=== PATIENT | female | born 1990 | race Hispanic/Latino ===

== ENCOUNTER 2017-05-30 01:07 | Emergency (ER) | payer BC ==
[2017-05-30 01:37] LABS: Bilirubin Negative (Negative); Blood, Urine Negative (Negative); Clarity CLEAR (Clear); Glucose, Urine (Dipstick) Negative (Negative); Leukocyte Moderate (Negative); Nitrite Negative (Negative); Protein, Urine (Dipstick) Trace mg/dL (Neg-Trace); Specific Gravity, Urine 1.025 (1.002-1.036)
[2017-05-30 01:39] LABS: Bacteria/HPF Rare-Few HPF (None Seen); Pathc Cast-AUWi Flag 0.13 (0-2.49); WBC/HPF 21-50 HPF (0-3)
[2017-05-30 01:48] LABS: Hyaline Casts/LPF NONE SEEN LPF (0-3 Hyaline)
== END 2017-05-30 02:56 | disposition home or self-care (01) ==
LOC: ERS 01:07
DX: N39.0 Urinary tract infection, site not specified (principal); F41.9 Anxiety disorder, unspecified; Z79.84 Long term (current) use of oral hypoglycemic drugs; Z79.899 Other long term (current) drug therapy
CPT/HCPCS: 81003; 81015; 87086; 99284

== ENCOUNTER 2017-08-04 23:15 | Emergency (ER) | payer BC ==
[2017-08-04 23:57] LABS: #Eosinphils 0.2 thou/uL (0.0-0.7); #Lymphocytes 3.7 thou/uL (1.20-3.40); #Monocytes 0.7 thou/uL (0.11-0.59); #Neutrophils 8.6 thou/uL (1.40-6.50); %Basophils 0.3 % (0.0-1.0); %Eosinophils 1.6 % (0.0-10.0); %Monocytes 5.5 % (0.0-10.0); %Neutrophils 64.7 % (42.0-75.0); Hemoglobin 15.1 g/dL (12.0-16.0); Mean Corpuscular HGB CONC 34.7 g/dL (32.0-36.0); Mean Corpuscular Hemoglobin 28.6 pg (27.0-31.0); Mean Corpuscular Volume 82.4 fl (81.0-99.0); Mean Platelet Volume 7.3 fL (7.4-10.4); Platelet Count 246 thou/uL (130-400); RBC Distribution Width 12.3 % (11.5-14.5); Red Blood Cell (RBC) Count 5.28 mill/uL (4.20-5.40); White Blood Cell (WBC) Count 13.3 thou/uL (4.8-10.8)
[2017-08-05 00:15] LABS: ALT (SGPT) 52 U/L (8-55); AST (SGOT) 37 U/L (5-34); Albumin 4.5 g/dL (3.5-5.0); Alkaline Phosphatase 100 U/L (40-150); Anion Gap 14 mmol/L (10-20); BUN (Urea Nitrogen) 10 mg/dL (7.0-18.7); Bilirubin, Total 0.5 mg/dL (0.2-1.2); CK (CPK) 142 U/L (29-168); Calc. Creatinine Clearance 0 mL/min (70-130); Calcium 9.4 mg/dL (7.8-10.44); Carbon Dioxide 25 mmol/L (22-29); Chloride 98 mmol/L (98-107); Estimated GFR-MDRD Greater than 90; Globulin 3.7 g/dL (2.4-3.5); Glucose 175 mg/dL (70-105); Potassium 3.7 mmol/L (3.5-5.1); Protein, Total 8.2 g/dL (6.0-8.3); Sodium 133 mmol/L (136-145)
[2017-08-05 00:20] LABS: CKMB 3.3 ng/mL (0-6.6); Troponin I Less than 0.010 ng/mL (< 0.028)
[2017-08-05 02:57] LABS: Troponin I Less than 0.010 ng/mL (< 0.028)
--- NOTE | 2017-08-05 08:50 | RAD ---
CHEST 1 VIEW: Date: 08/04/17 HISTORY: 26-year-old female with history of chest pain and palpitations. COMPARISON: 03/19/09. FINDINGS: A necklace overlies the central chest. Heart size is within normal limits. The lungs are clear. No pn eumonia, edema, or pleural effusion. IMPRESSION: No acute intrathoracic disease. Stable from prior study. POS: OFF
== END 2017-08-05 03:54 | disposition home or self-care (01) ==
LOC: ERS 23:15
DX: E11.65 Type 2 diabetes mellitus with hyperglycemia (principal); R00.2 Palpitations; F41.9 Anxiety disorder, unspecified
CPT/HCPCS: 36415; 71045; 80053; 82553; 83880; 84484; 85025; 85730; 93005

== ENCOUNTER 2019-01-25 18:30 | Outpatient (CLI) | payer BC | END 2019-01-25 18:31 | disposition home or self-care (01) | LOC: SLEEPLAB 18:30 | PROVIDERS: ATTEND Family Medicine | DX: G47.33 Obstructive sleep apnea (adult) (pediatric) (principal); R53.83 Other fatigue; R06.02 Shortness of breath; R06.83 Snoring; F41.9 Anxiety disorder, unspecified | CPT/HCPCS: 95806 ==

== ENCOUNTER 2019-07-16 09:55 | Outpatient (CLI) | payer BC ==
--- NOTE | 2019-07-16 12:50 | ULT ---
BLADDER ULTRASOUND: HISTORY: Recurrent UTIs. FINDINGS: Real-time imaging of the bladder shows a normal position to the bladder. Prevoid volume of the bladd er was 28 cc. The postvoid volume is 31 cc. Bilateral ureteral jets are noted. IMPRESSION: Postvoid residual of 31 cc. POS: [facility]AL[place]
== END 2019-07-16 09:56 | disposition home or self-care (01) ==
LOC: BICULT 09:55
PROVIDERS: ATTEND Family Medicine
DX: N39.0 Urinary tract infection, site not specified (principal); R39.198 Other difficulties with micturition
CPT/HCPCS: 76856; 81003; 87077; 87086